=== PATIENT | male | born 1960 | race Caucasian/White ===

== ENCOUNTER 2021-08-01 07:45 | Outpatient (RCR) | payer OTHER, SELFPAY ==
--- NOTE | 2021-07-05 09:40 | PTOPEVAL ---
Thank you for referring Brijesh Ross to [facility].? The patient is scheduled to be seen for therapy? 2 x/week for 4 weeks. Please review, sign, date and return this plan of care DIONISIO. I agree with and certify that the following plan of care is medically necessary. Referring Physician Date Attending Provider: Ho Wolfe MD Problem Diagnosis gordon shoulder pain, shoulder tendonitis Onset 2 yrs Additional Evaluation Detail He has 7 acres and a flower farm, plus horses to take of care. He is required to perform lots of lifting and physical activities. 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 Subjective Information Reports the pain is usually in Query Text:As Reported By Patient/ lateral shoulder/upper arm Family region. He had pain with sleeping on his sides, pain with turning at night and sleeping. Reports incresaed pain with overhead lifting. C/ o tightness with reaching especially on right UE. He would take medication to help with the pain. He c/o UE weakness. He received injections gordon shoulders with improved symptoms. Diagnostic Tests X-Rays For This Problem Yes: moderate AC joint degenerative changes. Pain Assessment Left Shoulder(s) Reported Pain Level 0 Pain Description Aching,Sharp Lowest Pain Intensity 0 Greatest Pain Intensity 2 Pain Aggravating Factors Lifting,Prolonged Position Right Shoulder(s) Reported Pain Level 0 Pain Description Aching,Dull,Sharp Pain Frequency Chronic Lowest Pain Intensity 0 Greatest Pain Intensity 2 Pain Aggravating Factors Lifting,Prolonged Position Upper Extremity Range of Motion Scapular/ Shoulder Range of Motion Left Shoulder Flexion - Active 135 Shoulder Extension - Active 60 Shoulder Abduction - Active 135 Shoulder Medial Rotation - Active 80 Shoulder Medial Rotation - Active T10:Reach Behind the Back Shoulder Lateral Rotation - Active 90 Shoulder Lateral Rotation - Active T2:Reach Behind the Head Right Shoulder Flexion - Active 155 Shoulder Extension - Active 63 Shoulder Abduction - Active 130 Shoulder Medial Rotation - Active
--- NOTE | 2021-07-17 08:18 | PCPTNOTE ---
Patient called & cancelled scheduled appointment this date due to having to work.
--- NOTE | 2021-07-25 09:15 | PCPTNOTE ---
Patient called & cancelled scheduled appointment this date due to bad weather.
--- NOTE | 2021-08-01 08:34 | PTOPEVAL ---
Physical Therapy Discharge Summary Thank you for referring Brijesh Ross to [facility].? Brijesh has attended 7 therapy visits to address his shoulder limitations. As a result of skilled therapy services he demonstrates improved shoulder motion, improved shoulder and scapular strength and improved pain with daily task. He has reached his maximal potential with skilled therapy services. Will DC skilled therapy services with recommendations to cont with HEP. Please review, sign, date and return this discharge summary DIONISIO. I agree with and certify that the following plan of care is medically necessary. Referring Physician Date Attending Provider: Ho Wolfe MD Diagnosis gordon shoulder pain, shoulder tendonitis Onset 2 yrs Additional Evaluation Detail He has 7 acres and a flower farm, plus horses to take of care. He is required to perform lots of lifting and physical activities. 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 Subjective Information Denies any pain in the Query Text:As Reported By Patient/ shoulder for the past week. He Family reports the exercises are helping. Denies any limitations with sleeping on his sides or with turning in bed at night. Denies any pain wiht lifting or carrying. He is more aware of proper posture and body mechanics. Pain Assessment Self Report Self Report Pain Level 0 Pain Score Pain Score 0: Self Report Upper Extremity Range of Motion Scapular/ Shoulder Range of Motion Left Shoulder Flexion - Active 163 Shoulder Extension - Active 65 Shoulder Abduction - Active 170 Shoulder Medial Rotation - Active 85 Shoulder Medial Rotation - Active T7:Reach Behind the Back Shoulder Lateral Rotation - Active 90 Shoulder Lateral Rotation - Active T2:Reach Behind the Head Right Shoulder Flexion - Active 170 Shoulder Extension - Active 65 Shoulder Abduction - Active 170 Shoulder Medial Rotation - Active 70 Shoulder Medial Rotation - Active T10:Reach Behind the Back Shoulder Lateral Rotation - Active 90 Shoulder Lateral Rotation - Active T2Reach Behind the Head Upper Extremity Muscle Strength Testing Scapular/Shoulder Right Scapular Retraction - Rhomboid 3+ Fair + Scapular Retraction - Middle Trapezius 3+ Fair + Scapular Retraction - Lower Trapezius 2+ Poor + Shoulder Flexion Strength 3+ Fair + Shoulder Extension Strength 5 Normal Shoulder Abduction Strength 4+ Good + Shoulder Medial Rotation Strength 5 Normal Should
== END 2021-08-01 16:54 | disposition home or self-care (01) ==
LOC: ANHPT 07:45
PROVIDERS: PCP Family Medicine; Visit Provider Orthopaedic Surgery
DX: M25.511 Pain in right shoulder (principal); M25.512 Pain in left shoulder; G89.29 Other chronic pain
CPT/HCPCS: 97110; 97140; 97161

== ENCOUNTER 2022-09-07 10:14 | Emergency (ER) | payer OTHER, SELFPAY ==
[2022-09-07 10:21] VITALS: BP 146/91; PULSE 77; RESP 16; TEMP 36.7; O2SAT 97
--- NOTE | 2022-09-07 10:41 | ED.GENADULT ---
HPI - General Adult General Chief complaint: Ear Stated complaint: ear pain Source: patient Mode of arrival: ambulatory Limitations: no limitations History of Present Illness HPI narrative: PATIENT PRESENTS FOR EVALUATION OF BILATERAL EAR PAIN, RIGHT GREATER THE LEFT FOR THE LAST FEW WEEKS. IN THE LAST FEW DAYS HE HAS DEVELOPED SOME MILD TINNITUS. NO HEARING LOSS OR DRAINAGE FROM THE EARS. NO FEVER, CHILLS, NAUSEA, VOMITING, SORE THROAT RESPIRATORY SYMPTOMS. Related Data Allergies Allergy/AdvReac Type Severity Reaction Status Date / Time No Known Allergies Allergy Unknown Verified 09/07/22 10:24 Review of Systems Review of Systems: CONSTITUTIONAL: DENIES FEVER, CHILLS, OR SWEATS. EYES: DENIES VISUAL CHANGES, REDNESS, OR DISCHARGE. ENT: REPORTS BILATERAL EAR PAIN, RIGHT GREATER THAN LEFT. REPORTS MILD TINNITUS. DENIES RHINORRHEA, CONGESTION, SORE THROAT CARDIOVASCULAR: DENIES CHEST PAIN, PALPITATIONS, OR EDEMA. RESPIRATORY: DENIES COUGH OR DYSPNEA. GASTROINTESTINAL: DENIES ABDOMINAL PAIN, NAUSEA, VOMITING, OR DIARRHEA. GENITOURINARY: DENIES DYSURIA OR HEMATURIA. SKIN: DENIES RASH OR ITCHING. MUSCULOSKELETAL: DENIES BACK PAIN, JOINT PAIN, OR MYALGIA. NEUROLOGIC: DENIES HEADACHE, NUMBNESS, DIZZINESS, OR WEAKNESS. PSYCHIATRIC: DENIES ANXIETY OR DEPRESSION. [facility] Past Medical History Medical History (Updated 09/07/22 @ 10:53 by Danilo Dyson, HAND SPRAY OPERATOR, ) Bilateral shoulder pain Injury of tendon of left upper extremity Osteoarthritis of left knee Surgical History Surgical History No pertinent past surgical history Family History Family History Mother Cancer Father Degenerative arthritis of knee, bilateral had knee replacements Social History Social History Smoking status: Never smoker Alcohol intake: current Alcohol use details: occasional Occupation/Education: occupation Additional occupation/education comments: [employer] Gender identity (if verbalized by the patient): Male Exam Narrative: GENERAL: WELL-APPEARING, WELL-NOURISHED, AND IN NO ACUTE DISTRESS. HEAD: NORMOCEPHALIC, ATRAUMATIC. EYES: PERRLA AND EOMI. ENT: NARES CLEAR, NO RHINORRHEA OR EPISTAXIS. MUCOUS MEMBRANES MOIST. OROPHARYNX WITHOUT TONSILLAR HYPERTROPHY EXUDATE OR OTHER LESIONS. EFFUSIONS NOTED BEHIND BILATERAL TM'S. THERE IS BULGING OF TM'S BILATERALLY NECK: SUPPLE. NO ADENOPATHY OR MASSES. NO CAROTID BRUITS OR JVD CHEST: CLEAR TO AUSCULTATION. NO RESPIRATORY DISTRESS. NO WHEEZES RALES OR RHONCHI HEART: REGULAR RATE AND RHYTHM. NO MURMUR HEARD. NORMAL PERIPHERAL PULSES. ABDOMEN: SOFT, NONTENDER, NONDISTENDED, NORMAL ACTIVE BOWEL SOUNDS. EXTREMITIES: NORMAL RANGE OF MOTION. NO EDEMA. SKIN: WARM, DRY, NO RASH. NEURO: NO FOCAL DEFICITS. ALERT AND ORIENTED X3. PSYCH: NORMAL MOOD AND AFFECT. Course Course Emergency Course: THIS IS A 62-YEAR-OLD MALE WHO PRESENTED FOR EVALUATION OF BILATERAL EAR PAIN. HE HAS EVIDENCE OF OTITIS MEDIA ON EXAM. WILL TREAT WITH AUGMENTIN. FOLLOW UP WITH PRIMARY PROVIDER. GO TO THE ER WORSENING SYMPTOMS. PATIENT IN AGREEMENT PLAN OF CARE Level of Care: Express Care Visit Vital Signs Vital signs: Vital Signs Temperature 36.7 C 09/07/22 10:21 Pulse Rate 77 09/07/22 10:21 Respiratory Rate 16 09/07/22 10:21 Blood Pressure 146/91 H 09/07/22 10:21 Pulse Oximetry 97 09/07/22 10:21 Temperature 36.7 C 09/07/22 10:21 Pulse Rate 77 09/07/22 10:21 Respiratory Rate 16 09/07/22 10:21 Blood Pressure 146/91 H 09/07/22 10:21 Pulse Oximetry 97 09/07/22 10:21 Medical Decision Making Vital Signs Vital Signs: Vital Signs Temperature 36.7 C 09/07/22 10:21 Pulse Rate 77 09/07/22 10:21 Respiratory Rate 16 09/07/22 10:21 Blood Pressure 146/91 H 09/07/22
== END 2022-09-07 10:41 | disposition home or self-care (01) ==
PROVIDERS: Emergency Provider Nurse Practitioner; PCP Family Medicine
DX: H66.93 Otitis media, unspecified, bilateral (principal)
CPT/HCPCS: 99213; G0463